=== PATIENT | female | born 1980 | race Caucasian/White ===

== ENCOUNTER 2024-12-01 21:23 | Emergency (ER) | payer MEDICAID, SELFPAY ==
[2024-12-01 21:25] VITALS: BP 105/87; PULSE 97; RESP 18; TEMP 36.8; O2SAT 99; BMI 31.4
--- NOTE | 2024-12-01 21:43 | EKG12_ITS ---
Test Reason : PALPITATIONS Blood Pressure : */* mmHG Vent. Rate : 100 BPM Atrial Rate : 100 BPM P-R Int : 130 ms QRS Dur : 86 ms QT Int : 340 ms P-R-T Axes : 63 71 47 degrees QTcB Int : 438 ms Normal sinus rhythm Normal ECG No previous ECGs available Confirmed by Sarwat Harp ([id number]), industrial editor MIRIAM ZIMMER ([id number]) on 12/06/2024 10:02:51 AM Referred By: Yvonne Confirmed By: Sarwat Harp
--- NOTE | 2024-12-01 21:43 | EX.ED.DYSGE1 ---
HPI History of Present Illness Chief Complaint: Palpitations Informant: patient and family Narrative Narrative: Presents here with her sister for palpitations lasting 6 to 7 minutes around 6 PM. History of SVT stating cold all her life. She is from [facility]. She follows cardiology, she is on metoprolol twice a day. She states she has been referred to electrophysiology she has been offered ablation when she is ready. She states this time with her symptoms had nausea and vomiting. No abdominal pain. She did go home Zofran with no relief. No cough no urinary symptoms. Symptoms subsided. She did heart rate was 223 on her watch. Prior similar symptoms: Yes [facility] Medical History History of left heart catheterization SVT (supraventricular tachycardia) Home Medications ?Medication ?Instructions ?Recorded ?Last Taken ?Type alprazolam 0.25 mg tablet (Xanax) 0.25 mg PO DAILY PRN anxiety 12/01/24 Unknown History ascorbic acid (vitamin C) 500 mg 500 mg PO DAILY 12/01/24 Unknown History tablet (C-500) buspirone 15 mg tablet 15 mg PO BID 12/01/24 Unknown History glucosamine-chondroitin 250 mg-200 1 tab PO DAILY 12/01/24 Unknown History mg tablet (Osteo Bi-Flex) metoprolol tartrate 25 mg tablet 25 mg PO Q12H 12/01/24 Unknown History sertraline 100 mg tablet (Zoloft) 150 mg PO DAILY 12/01/24 Unknown History zep bound 12/01/24 Unknown History zolpidem 5 mg tablet (Ambien) 5 mg PO QHS 12/01/24 Unknown History Allergy/AdvReac Type Severity Reaction Status Date / Time morphine AdvReac Mild Itching Verified 12/01/24 21:25 Social History Smoking Status: Never smoker ROS ROS ED Constitutional Constitutional ED: Denies chills, fever(s) or sweats ENT ENT ED: Denies sore throat Cardiovascular Cardiovascular: Reports palpitations; Denies chest pain, leg edema or racing heartbeat Respiratory/Chest Respiratory/Chest: Denies cough, dyspnea or dyspnea on exertion Gastrointestinal Gastrointestinal: Reports nausea and vomiting; Denies abdominal pain or diarrhea Genitourinary Genitourinary ED: Denies dysuria, hematuria or urinary frequency Musculoskeletal Musculoskeletal: Denies back pain, extremity pain or neck pain Integumentary Denies rash or wounds Neurologic Neurologic: Denies headache(s), paresthesias or weakness EXAM Physical Exam Const Vital Signs: 12/01/24 21:25 12/01/24 22:42 Temperature 98.2 F 98.1 F Temperature Source Oral Pulse Rate 97 87 Respiratory Rate 18 16 Blood Pressure 105/87 H 108/65 Blood Pressure Mean 93 79 Pulse Ox 99 98 Oxygen Delivery Method Room Air Positive well nourished and well developed General Appearance ED: well developed and NAD HEENT Reports moist mucous membranes normocephalic and atraumatic Eyes General Eye ED: Yes normal appearance of both eyes Neck full ROM Chest Wall Chest: Negative for tenderness Resp normal respiratory effort and normal air movement Effort and Inspection: symmetric chest movement; Negative for respiratory distress Cardio regular rate, regular rhythm and no murmurs Peripheral Pulses: pulses 2+ throughout GI normal to inspection, nondistended, normoactive bowel sounds and non-tender Palpation: Negative for guarding or rebound tenderness present Extremity normal to inspection General Extremety ED: Negative for edema or tenderness General Extremity: Negative for edema Neuro oriented x3 and no sensory deficits noted Sensorium / Orientation: awake and alert Skin no rashes or lesions noted and no wounds MDM MDM MDM Narrative Medical decision making narrative: Interventions / MDM: Differential diagnosis: Palpitations, history of SVT, nausea and vomiting Diagnosis considered but do not suspect: N/A My EKG interpretation: Sinus rate of 100, no ST or T wave changes. Imaging independently reviewed and interpreted by myself: N/A External documents reviewed: N/A Test considered but not ordered:N/A ED course: Palpitations as resolved EKG sinus rhythm history of SVTs. Still nauseous. She is nontoxic nontender abdomen. Will check basic labs fluid IV Zofran. Will reevaluate. Labs stable no recurrent symptoms on reevaluation. Show avoid caffeine. She will continue oral fluids. She has Zofran at home. 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 All questions were answered. Re-evaluation: stable Disposition discussed with patient/family/significant other: Patient and family Case discussed with consulting clinician: N/A This note was generated with simplifyMDation software. It may contain incorrect words, spelling, and punctuation that were not noted in checking the note before signing. Lab Data Attestation: I reviewed the patient's lab results. Labs: Laboratory Results - last 24 hr 12/01/24 21:52 WBC 6.8 RBC 4.25 Hgb 12.6 Hct 36.3 L MCV 85.4 MCH 29.6 MCHC 34.7 RDW Std Deviation 40.3 RDW Coeff of Ceferino 13.2 Plt Count 201 MPV 10.8 Immature Gran % (Auto) 0.400 Neut % (Auto) 72.9 H Lymph % (Auto) 18.3 L [place] % (Auto) 6.3 Eos % (Auto) 1.5 Baso % (Auto) 0.6 Absolute Neuts (auto) 5.0 Absolute Lymphs (auto) 1.25 Nucleated RBC % 0 Sodium 139 Potassium 3.8 Chloride 106 Carbon Dioxide 21.3 Anion Gap 11 BUN 12 Creatinine 1.00 Estim Creat Clear Calc 76.80 Est GFR (MDRD) Non-Af 71 BUN/Creatinine Ratio 12.3 Glucose 117 H Calcium 9.5 Discharge Plan Triage Chief Complaint: Palpitations Other Complaint: Nausea/Vomiting ED Provider: Johny Russell Dx/Rx/DC Orders Clinical Impression: Palpitations, History of supraventricular tachycardia Instructions: ED Palpitations Prescriptions: No Action metoprolol tartrate 25 mg tablet 25 mg PO Q12H sertraline [Zoloft] 100 mg tablet 150 mg PO DAILY buspirone 15 mg tablet 15 mg PO BID zolpidem [Ambien] 5 mg tablet 5 mg PO QHS Rx Instructions: may repeat once if no response in 30-60 minutes ascorbic acid (vitamin C) [C-500] 500 mg tablet 500 mg PO DAILY glucosamine-chondroitin [Osteo Bi-Flex] 250-200 mg tablet 1 tab PO DAILY Rx Instructions: give after food/meal alprazolam [Xanax] 0.25 mg tablet 0.25 mg PO DAILY PRN (Reason: anxiety) zep bound Primary Care Provider: DEJA RODRIGUEZ Referrals: DEJA RODRIGUEZ [Other] - 1-2 Weeks Activity Restrictions/Additional Instructions: Labs are normal. Oral fluids for hydration. Use Zofran as needed. EKG sinus rhythm. Follow-up with your cardiology team for reevaluation. Avoid caffeine products. Print Language: [place]arag[place] Disposition Disposition: Home, Self Care Discharge Date/Time: 12/01/24 23:04
[2024-12-01] MEDS: 0.9% Normal Saline (1000mL) 1,000 ML 1000 ML IV (21:56)
[2024-12-01] MEDS: Ondansetron 4 MG/2 ML Vial IV (21:56)
[2024-12-01 22:00] LABS: Absolute Lymphocyte Count 1.25 X10^3/uL (0.83-4.51); Basophil# 0.04 X10^3/uL; Basophil% 0.6 % (0-1); Eosinophils% 1.5 % (0-5); Hematocrit 36.3 % (37-47); Hemoglobin 12.6 g/dL (12.0-15.0); Lymphocyte # 1.25 X10^3/ul (0.83-4.51); Lymphocyte % 18.3 % (19-41); Mean Corp Hgb Conc 34.7 g/dL (32-36); Mean Corpuscular Hgb 29.6 pg (27.0-32.0); Mean Corpuscular Volume 85.4 fL (81-99); Mean Platelet Vol. 10.8 fl (6.2-12.0); Monocyte# 0.43 X10^3/uL; Monocyte% 6.3 % (0-10); NRBC Flagged by Analyzer 0 % (0-5); Neutrophil # 4.98 X10^3/uL (2.7-7.7); Neutrophil % 72.9 % (47-70); Platelet Count 201 K/mm3 (150-450); RBC Distribution Width CV 13.2 % (11.6-14.6); RBC Distribution Width SD 40.3 fl (35.1-43.9); Red Blood Count 4.25 M/mm3 (4.2-5.4); White Blood Count 6.8 K/mm3 (4.4-11.0)
[2024-12-01 22:25] LABS: Anion Gap 11 (5-15); BUN 12 mg/dL (4-19); BUN/Creat Ratio 12.3 RATIO (10-20); Calcium,Total 9.5 mg/dL (7.6-11.0); Carbon Dioxide 21.3 mmol/L (21.0-32.0); Chloride 106 mmol/L (98-108); EST Glomerular Filtration Rate 71 (>60); Glucose 117 mg/dL (70-99); Potassium 3.8 mmol/L (3.3-5.1); Sodium Level 139 mmol/L (133-145)
[2024-12-01 22:42] VITALS: BP 108/65; PULSE 87; RESP 16; TEMP 36.7; O2SAT 98
== END 2024-12-01 23:04 | disposition home or self-care (01) ==
PROVIDERS: Emergency Provider Emergency Medicine; Visit Provider Emergency Medicine
DX: R00.2 Palpitations (principal); R11.2 Nausea with vomiting, unspecified
CPT/HCPCS: 80048; 85025; 93005; 96361; 96374; 99285; A4216; J2405